=== PATIENT | male | born 1990 | race Caucasian/White ===

== ENCOUNTER 2021-01-31 04:45 | Emergency (ER) | payer BC ==
[~2021-01-31] VITALS: Ht 180.3 cm; Wt 97.5 kg
[2021-01-31] MEDS ORDERED: IBUP400 PO (06:35)
== END 2021-01-31 06:48 | disposition home or self-care (01) ==
LOC: ER 04:45
DX: K08.89 Other specified disorders of teeth and supporting structures (principal)
CPT/HCPCS: 99282